=== PATIENT | male | born 1995 | race Caucasian/White ===

== ENCOUNTER 2017-10-18 11:44 | Emergency (ER) | payer OTHER, SELFPAY ==
[2017-10-18 11:49] VITALS: BP 146/70; PULSE 52; RESP 14; TEMP 36.9; O2SAT 100; BMI 25.1
--- NOTE | 2017-10-18 13:14 | ED_ITS ---
HPI - Extremity Injury (Lower) <Mary Dixon PA-C - Last Filed: 10/18/17 21:22> General Chief Complaint: Extremity Injury, Lower Stated Complaint: TWISTED RT KNEE Time Seen by Provider: 10/18/17 13:13 Source: patient Mode of arrival: ambulatory Limitations: no limitations History of Present Illness HPI Narrative: This healthy 21-year-old male comes in today to evaluate the progress of right knee injury that occurred 8 days ago while wake boarding. He states that he twisted and had some swelling initially which is still there a little bit but has improved. He states that initially he could not fully bend or straighten it but range of motion is improving. He had significant pain with going up and down stairs, now better but still hurts somewhat going downstairs. He states he some pain mainly at night now if he tries to put pressure or lie on that side of his leg. He states that he has been using ibuprofen as needed now and using a knee open brace which has helped. He does not have any sense of instability and feels like this has improved significantly but not sure how to further treat this or what activities he can do as he typically runs and lifts weights somewhat regularly. He denies any other injury or pain in other joints Related Data Home Medications Medication Instructions Recorded Confirmed No Known Home Medications 10/18/17 10/18/17 Allergies Allergy/AdvReac Type Severity Reaction Status Date / Time No Known Drug Allergies Allergy Verified 10/18/17 11:52 Review of Systems <Mary Dixon PA-C - Last Filed: 10/18/17 21:22> Review of Systems All systems reviewed & are unremarkable except as noted in HPI and below Exam <Mary Dixon PA-C - Last Filed: 10/18/17 21:22> Narrative Exam Narrative: GENERAL APPEARANCE: Patient sitting comfortably, in no distress. MUSCULOSKELETAL: Right hip no tenderness to palpation, full passive ROM without tenderness. Right knee there is minimal left medial suprapatellar effusion and tenderness. No joint line tenderness. No tenderness elsewhere over the femur, patella, or tibia. He has full extension actively of the right knee and flexion to 90? without tenderness. I am able to passively flex to 110 ? without tenderness. There is no laxity with varus or valgus stress or drawer testing. No tenderness or effusion over the right ankle. Full range of motion EXTREMITIES: No calf tenderness, warm and pink Initial Vital Signs Initial Vital Signs: Vital Signs Temperature 98.4 F 10/18/17 11:49 Pulse Rate 52 L 10/18/17 11:49 Respiratory Rate 14 10/18/17 11:49 Blood Pressure 146/70 H 10/18/17 11:49 Pulse Oximetry 100 10/18/17 11:49 <Liban Redman MD - Last Filed: 10/19/17 08:55> Initial Vital Signs Initial Vital Signs: Vital Signs Temperature 98.4 F 10/18/17 11:49 Pulse Rate 52 L 10/18/17 11:49 Respiratory Rate 14 10/18/17 11:49 Blood Pressure 146/70 H 10/18/17 11:49 Pulse Oximetry 100 10/18/17 11:49 Course <Mary Dixon PA-C - Last Filed: 10/18/17 21:22> Vital Signs - 8 hr 10/18/17 13:46 Pulse Rate 46 L Respiratory Rate 14 Blood Pressure [Left Arm] 134/69 H Pulse Oximetry 100 <Liban Redman MD - Last Filed: 10/19/17 08:55> Vital Signs - 8 hr 10/18/17 13:46 Pulse Rate 46 L Respiratory Rate 14 Blood Pressure [Left Arm] 134/69 H Pulse Oximetry 100 Discharge Plan Departure Patient Disposition: Home, Self-Care Clinical Impression: Patellar tendonitis of right knee Discharge Date/Time: 10/18/17 13:48 Interventions: ED Discharge Assessment Last Done: 10/18/17 13:47 Instructions: DI for Patellar Tendinopathy Activity Restrictions/Additional Instructions: You seem to have strained the area on the inside of your knee between the knee cap and thigh muscles. Since you are over the acute phase of this injury, you can try adding heat on your knee several times daily (i.e. with heating pad). Use ice also if you find it helpful. Take Ibuprofen 400mg every 8 hours with food for at least the next week. You can increase to 800mg as needed. Wear your knee brace. Regular walking on even surfaces is fine. Please try to avoid stairs and uneven surfaces. Avoid your weight lifting, squatting, running until your better. This could take 3-6 weeks longer. If you are not continuing to improve over the next couple of weeks, please see your PCP as you might need further testing or therapy as we talked about. Return if you have any acutely worsening symptoms Prescriptions: No Action No Known Home Medications RF: 0 [facility]errals: [facility] [Provider Group] <Liban Redman MD - Last Filed: 10/19/17 08:55> Sign Out Provider Sign Out Attestation: The PA/CHILLER TECHNICIAN functioned independently for the care of this pt, I was available, but not asked to participate in care. I am unable to determine appropriateness of management without personally examining the pt.
[2017-10-18 13:46] VITALS: BP 134/69; PULSE 46; RESP 14; O2SAT 100
== END 2017-10-18 13:48 | disposition home or self-care (01) ==
PROVIDERS: Emergency Provider Internal Medicine
DX: M76.51 Patellar tendinitis, right knee (principal)
CPT/HCPCS: 99282

== ENCOUNTER 2019-02-06 15:26 | Emergency (ER) | payer OTHER, SELFPAY ==
[2019-02-06 15:30] VITALS: BP 155/77; PULSE 58; RESP 14; TEMP 36.9; O2SAT 98; BMI 26.5
--- NOTE | 2019-02-06 16:06 | DI.RAD.S_ITS ---
PROCEDURE: XR CHEST 2V INDICATIONS: cough TECHNIQUE: 2 views of the chest were acquired. COMPARISON: None. FINDINGS: Surgical changes and devices: None. Lungs and pleura: Lungs are clear. No pleural effusions or pneumothorax. Mediastinum: Mediastinal contours are normal. Heart size is normal. Bones and chest wall: No suspicious bony abnormalities. Soft tissues appear unremarkable. IMPRESSION: Negative for infiltrate. Dictated by: Hill Claire M.D. on 02/06/2019 at 15:36 Approved by: Hill Claire M.D. on 02/06/2019 at 15:37
--- NOTE | 2019-02-06 16:20 | ED.URI ---
HPI - URI/Sore Throat General Chief Complaint: Upper Respiratory Symptoms Stated Complaint: bad cough 5-6wks,getting worse Time Seen by Provider: 02/06/19 15:29 Source: patient Mode of arrival: Ambulatory Limitations: no limitations History of Present Illness HPI Narrative: Patient presents the emergency department complaining of ongoing cough for the last 5-6 weeks. The patient states that within the 1st couple of weeks noticing the cough, his exercise tolerance had decreased and that he has lost about 5 since illness started, secondary to not being able to workout as usual. Patient denies any nausea or vomiting. No fevers. He has had minimal production of yellow sputum. The patient has been living over in [place], where he attends [facility]. Patient states he was seen in urgent care center, where he was started on amoxicillin. He states this almost completely cleared up the cough, but that it recurred when the amoxicillin was done. Patient has also been on Claritin-D, albuterol inhaler, prednisone and Robitussin, without improvement. After the amoxicillin, he was put on a Zithromax Z-Prabhakar which did not seem to help his symptoms. patient states he still has decreased exercise tolerance. He denies any calf pain or swelling. No swelling in his ankles or feet. No history of any exotic travel. Patient states he is otherwise very healthy. He does not do any kind of smoking and he does not vape. Patient denies any night sweats. No weight loss other than the 5 lb he attributes to not working out. 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 Nobody else around him has been sick. No history of GERD and no GERD type symptoms. Related Data Previous Rx's Medication Instructions Recorded benzonatate [Tessalon Perles] 100 mg PO TID PRN #10 cap 02/06/19 Allergies Allergy/AdvReac Type Severity Reaction Status Date / Time No Known Drug Allergies Allergy Verified 02/06/19 15:39 Review of Systems Constitutional Constitutional: Denies chills, Denies fatigue, Denies fever(s), Denies frequent falls, Denies lethargy and Denies weakness Eyes Eyes: Denies change in vision, Denies eye discharge, Denies irritation and Denies loss of vision ENT Ears, Nose, Mouth, and Throat: Denies change in voice, Denies dizziness, Denies neck pain, Denies sore throat and Denies throat swelling Cardiovascular Cardiovascular: Denies chest pain, Denies irregular heart rhythm, Denies lightheadedness, Denies palpitations, Denies dyspnea, Denies dyspnea on exertion and Denies orthopnea Respiratory Respiratory: Reports cough, Denies dyspnea, Denies dyspnea on exertion and Denies wheezing Gastrointestinal Gastrointestinal: Denies abdominal pain, Denies change in bowel habits, Denies diarrhea, Denies nausea and Denies vomiting Genitourinary Genitourinary: Denies hematuria, Denies flank pain, Denies urinary incontinence and Denies urinary urgency Musculoskeletal Musculoskeletal: Denies back pain, Denies muscle weakness, Denies neck pain, Denies numbness and Denies tingling Integumentary/Breasts Skin/Breast: Denies pruritus, Denies erythema, Denies rash and Denies wounds Neurologic Neurologic: Denies behavioral changes, Denies confusion, Denies dizziness, Denies frequent falls, Denies loss of vision, Denies numbness, Denies tingling and Denies weakness Psychiatric Psychiatric: Denies anxiety, Denies behavioral changes, Denies confusion, Denies depression, Denies homicidal ideation and Denies suicidal ideation Endocrine Endocrine: Denies fatigue, Denies flushing and Denies palpitations Hematologic/Lymphatic Hematologic/Lymphatic: Denies easy bruising Allergic/Immunologic Allergic/Immunologic: Denies urticaria, Denies throat swelling and Denies wheezing Patient History Medical History Healthy adult male (Chronic) Social History Smoking Status: Never smoker alcohol intake frequency: a few times a week Substance Use Type: does not use Exam Initial Vital Signs Initial Vital Signs: Vital Signs Temperature 98.5 F 02/06/19 15:30 Pulse Rate 58 L 02/06/19 15:30 Respiratory Rate 14 02/06/19 15:30 Blood Pressure 155/77 H 02/06/19 15:30 Pulse Oximetry 98 02/06/19 15:30 Const General: cooperative and well developed Nutritional Appearance: well nourished Orientation: alert, awake, oriented x3 and not confused HENMT Head: normocephalic and atraumatic Ears: external ears normal Nose: external nose normal and No nasal discharge Face and sinus: face symmetric and No dry mucous membranes Mouth: oral mucosae normal and moist mucous membranes Teeth and gingiva: dentition normal Eyes General: appearance normal, both eyes and all related structures Eyelids: eyelids normal Conjunctivae: conjunctivae normal Sclera: sclerae normal Pupils: PERRL EOM: EOM intact bilaterally Neck Neck: normal visual inspection, trachea midline, No lymphadenopathy, No midline deformity and No JVD Lymphatic: No lymphedema Chest Chest: normal inspection of the chest Resp Effort & Inspection: normal respiratory effort, able to speak in complete sentences, no respiratory distress and no use of accessory muscles Auscultation: clear to auscultation bilaterally, no rales, no rhonchi and no wheezes Cardio Rate: regular rate Rhythm: regular rhythm Heart Sounds: no click, no gallops, no murmurs and no rubs Pulses: normal peripheral pulses Back/Spine/Pelvis Back: No CVA tenderness Cervical Spine: cervical ROM normal and No pain with cervical ROM Thoracic/Lumbar Spine: thoracic and lumbar spine normal to inspection Skin General: no rashes or lesions noted, No jaundice and No petechiae Neuro General: alert, oriented x3, gait normal and no focal motor deficits Speech: speech normal Extrem General: full ROM, no clubbing, cyanosis or edema, no pedal edema and no calf tenderness Psych Appearance: well kempt Mental Status: mental status grossly normal Attitude: cooperative Thought Content: normal and suicidality Judgment: judgment good Course Course Course Narrative: Patient was worked up with chest x-ray in the emergency department. He was well appearing, and multiple avenues of treatment for his cough had proved unfruitful. His x-ray was negative here in the emergency department. I discussed with him that it is possible that he has low-level allergies or GERD, or that he is still experiencing the after effects of a viral illness. However, I have also discussed with the patient that may be helpful to follow up with primer charger when he is back in town on , and I have advised him to make an appointment now for followup than. The patient is agreeable, and states that he will be going back to [facility] for 2 weeks after than giving and then returning home again and can make a plan for follow-up if needed. I have prescribed him Tessalon Perles to help with the cough. We have discussed the usual indications for return. Orders Ordered: ED Orders 02/06/19 16:06 XR chest 2V Stat Vital Signs Vital signs: Vital Signs - 8 hr 02/06/19 15:30 Temperature 98.5 F Pulse Rate 58 L Respiratory Rate 14 Blood Pressure 155/77 H Pulse Oximetry 98 MDM - URI/Sore Throat Medical Records Attestation: I reviewed the patient's medical records. Imaging Data Chest x-ray: Radiologist's impression: PROCEDURE: XR CHEST 2V INDICATIONS: cough TECHNIQUE: 2 views of the chest were acquired. COMPARISON: None. FINDINGS: Surgical changes and devices: None. Lungs and pleura: Lungs are clear. No pleural effusions or pneumothorax. Mediastinum: Mediastinal contours are normal. Heart size is normal. Bones and chest wall: No suspicious bony abnormalities. Soft tissues appear unremarkable. IMPRESSION: Negative for infiltrate. Dictated by: Hill Claire M.D. on 02/06/2019 at 15:36 Approved by: Hill Claire M.D. on 02/06/2019 at 15:37 Discharge Plan Departure Patient Disposition: Home Clinical Impression: Cough Discharge Date/Time: 02/06/19 17:25 Instructions: DI for Cough -- Adult Activity Restrictions/Additional Instructions: Your x-ray looks great. There is no evidence of pneumonia or any other infection. There is also no evidence of a tumor. Your heart silhouette is of normal size and there is no evidence of heart failure. It is not clear what is causing your ongoing cough; sometimes, a prolonged cough can simply be the fall out of a longer-lasting viral infection, though most do not last nearly this long. Given that you have been through 2 courses of antibiotics and have no fevers and minimal sputum production, it is unlikely that you have a lingering bacterial infection. Please schedule an appointment to follow-up in pulmonology on your Aris break if you're still coughing. You may take the Tessalon Perles prescribed to try to get relief from your cough. Prescriptions: New benzonatate [Tessalon Perles] 100 mg capsule 100 mg PO TID PRN (Reason: cough) Qty: 10 RF: 0 Referrals: [facility] [Provider Group]
[2019-02-06 17:16] VITALS: PULSE 48; RESP 16; O2SAT 98
[2019-02-06 17:24] VITALS: BP 132/62; PULSE 49; RESP 14; O2SAT 98
== END 2019-02-06 17:25 | disposition home or self-care (01) ==
PROVIDERS: Emergency Provider Emergency Medicine
DX: R05 Cough (principal)
CPT/HCPCS: 71046; 99282; 99283

== ENCOUNTER 2019-03-05 10:15 | Emergency (ER) | payer OTHER, SELFPAY ==
[2019-03-05 10:15] VITALS: BP 144/67; PULSE 51; RESP 18; TEMP 36.8; O2SAT 100; BMI 25.1
--- NOTE | 2019-03-05 11:25 | ED_ITS ---
HPI - Eye Problem <GINNY FloresP - Last Filed: 03/05/19 14:27> General Chief complaint: Eye Problems Stated complaint: poss conjunctivitis/pink eye Time Seen by Provider: 03/05/19 11:00 Source: patient Mode of arrival: Ambulatory Limitations: no limitations History of Present Illness HPI Narrative: This is a 23-year-old male, nonsmoker, who presents to ED with chief complain of goopy eye discharge since in the middle of night during sleep. Patient reports this morning he was unable to open his eyes due to thick yellow eye discharge. Patient denies vision changes or decreased vision, eye pain, or watery eye. Patient denies fever, chills, nausea or vomiting. Patient reports currently takes allergy medications and currently has mild cold symptoms. Patient was treated for conjunctivitis a few months ago when he was living in a dorm. Related Data Home Medications Medication Instructions Recorded Confirmed cetirizine [Zyrtec] 10 mg PO DAILY 03/05/19 03/05/19 Previous Rx's Medication Instructions Recorded moxifloxacin 1 drop EYE-BOTH TID 7 Days #3 ml 03/05/19 Allergies Allergy/AdvReac Type Severity Reaction Status Date / Time No Known Drug Allergies Allergy Verified 02/06/19 15:39 Review of Systems <REGLA Flores - Last Filed: 03/05/19 14:27> Review of Systems Narrative: General: Denies fever, chills, fatigue, malaise, sweats. HEENT: See HPI Respiratory: Reports mild cough and nasal congestion. Denies dyspnea, wheezing, hemoptysis, sputum. Cardiovascular: Denies chest pain, palpitations, orthopnea, edema. Gastrointestinal: Denies nausea, vomiting, abdominal pain, diarrhea, constipation, melena. : Denies dysuria, frequency, incontinence, hematuria, urinary retention. Musculoskeletal: Denies weakness, joint pain or bony pain. Skin: Denies rash, skin lesions, or other. Neurologic: Denies weakness, headache, numbness, change in speech, confusion, seizures, incoordination. Psychiatric: No concerning psychosocial issues. 12-point review of systems is negative except for those stated above. [facility] Last Filed: 03/05/19 14:27> Medical History Healthy adult male (Chronic) Social History Smoking Status: Never smoker Smoking Status: Never smoker alcohol intake frequency: a few times a week Substance Use Type: does not use Exam <REGLA Flores - Last Filed: 03/05/19 14:27> Narrative Exam Narrative: General appearance: well developed, well nourished, in no acute distress. Head: normocephalic, atraumatic, no scalp lesions, non-tender. ENT: Hearing grossly intact. Nose without bleeding, purulent discharge, septal hematoma or deviation. Turbinate without erythema or swelling. Facial sinuses nontender to palpate. Mucous membrane moist, no mucosal lesion. Throat without erythema, tonsillar hypertrophy or exudate. Uvula in midline, airway patent. Bilateral eyes mildly injected, L>R, purulent discharge is around the eyelids and lashes. Visual acuity 20/20 in OU, OS, and OD. +red light reflex, EOMI. No uptake in Fluorescein exam. No redness and warmth around the bilateral eyes. Neck/Thyroid: neck supple, full range of motion, no visible masses or meningeal signs. No JVD, non-tender without lymphadenopathy. Skin: no suspicious rashes, lesions over visible areas. Warm and dry and appropriate color for ethnicity. Heart: no clubbing, no cyanosis, no edema. S1 and S2 normal. RRR w/o murmurs, clicks, or bruits. Lungs: Breathing even and unlabored. No stridor. No accessory muscles used. Able to speak in full sentences. Chest: normal shape and expansion. Abdomen: non-obese, non-distended. Neurologic: alert and oriented. Cognitive exam, RAILROAD SIGNAL TECHNICIAN and PNS grossly intact on informal exam. Psych: good eye contact, normal affect. Initial Vital Signs Initial Vital Signs: Vital Signs Temperature 98.3 F 03/05/19 10:15 Pulse Rate 51 L 03/05/19 10:15 Respiratory Rate 18 03/05/19 10:15 Blood Pressure 144/67 H 03/05/19 10:15 Pulse Oximetry 100 03/05/19 10:15 <Jessica Adame DO - Last Filed: 03/05/19 14:58> Initial Vital Signs Initial Vital Signs: Vital Signs Temperature 98.3 F 03/05/19 10:15 Pulse Rate 51 L 03/05/19 10:15 Respiratory Rate 18 03/05/19 10:15 Blood Pressure 144/67 H 03/05/19 10:15 Pulse Oximetry 100 03/05/19 10:15 Scores [facility] - Last Filed: 03/05/19 14:27> GCS Melvern coma scale eye opening: Spontaneous Ramin coma scale verbal response: Orientated Melvern coma scale motor response: Obey commands Ramin coma scale total score: 15 Course <[facility] - Last Filed: 03/05/19 14:27> Orders Ordered: Discontinued Medications Fluorescein Sodium (Ful-Ayde) 1 mg EYE-BOTH NOW ONE Stop: 03/05/19 11:02 Last Admin: 03/05/19 11:47 Dose: 1 mg Documented by: [facility] Proparacaine HCl (Parcaine 0.5% Ophth Tisha) 2 drops EYE-BOTH NOW ONE Stop: 03/05/19 11:02 Last Admin: 03/05/19 11:47 Dose: 2 drop Documented by: CAMI Vital Signs Vital signs: Vital Signs - 8 hr 03/05/19 10:15 03/05/19 11:48 Temperature 98.3 F Pulse Rate 51 L 72 Respiratory Rate 18 16 Blood Pressure 144/67 H Blood Pressure [Left Arm] 136/77 Pulse Oximetry 100 100 <Jessica Adame DO - Last Filed: 03/05/19 14:58> Orders Ordered: Discontinued Medications Fluorescein Sodium (Ful-Ayde) 1 mg EYE-BOTH NOW ONE Stop: 03/05/19 11:02 Last Admin: 03/05/19 11:47 Dose: 1 mg Documented by: [facility]I Proparacaine HCl (Parcaine 0.5% Ophth Tisha) 2 drops EYE-BOTH NOW ONE Stop: 03/05/19 11:02 Last Admin: 03/05/19 11:47 Dose: 2 drop Documented by: CAMI Vital Signs Vital signs: Vital Signs - 8 hr 03/05/19 10:15 03/05/19 11:48 Temperature 98.3 F Pulse Rate 51 L 72 Respiratory Rate 18 16 Blood Pressure 144/67 H Blood Pressure [Left Arm] 136/77 Pulse Oximetry 100 100 [facility] - Eye Problem <REGLA Flores - Last Filed: 03/05/19 14:27> Differential Diagnosis Differential diagnosis: Likely corneal abrasion and conjunctivitis Medical Records Attestation: I reviewed the patient's medical records. [facility] Narrative Medical decision making narrative: This is a 23-year-old male who presents to ED with purulent eye discharge and mild itchiness in bilateral eyes since midnight last night. Patient denies eye discomfort or decreased in vision. Patient visual acuity is 20/20 bilaterally. Fluorescein eye exam without up takes. Patient was treated with conjunctivitis several months ago when he was living in a dorm. Physical exam is consistent with bacterial conjunctivitis and discharged to home with antibiotic eyedrops. Return precautions were discussed with the patient and patient verbalized understanding and agrees with the treatment plan. Strict handwashing and to avoid touching eyes discussed with the patient. Discharge Plan Departure Patient Disposition: Home Clinical Impression: Conjunctivitis Qualifiers: Conjunctivitis type: unspecified Laterality: bilateral Qualified Code(s): H10.9 - Unspecified conjunctivitis Discharge Date/Time: 03/05/19 12:00 Instructions: DI for Conjunctivitis Activity Restrictions/Additional Instructions: You have been diagnosed with [conjunctivitis in both eyes]. What to do: *Take your medications as directed. Moxifloxacin eyedrops has been transmitted to [facility]. Please use 1 drop every 8 hours while awake for 7 days. *Follow up with your primary care provider in 2-3 days, call for an appointment. Let them know you were seen in the ED and that we asked you to be seen in follow up. *Return to ED if you have any new, worsening, or concerning symptoms, such as [redness and swelling spreading to eye lids and face, fever, pain, decreased vision or any acute concerns]. Prescriptions: New moxifloxacin 0.5 % drops 1 drop EYE-BOTH TID 7 Days Qty: 3 RF: 0 No Action Zyrtec 10 mg Capsule 10 mg PO DAILY RF: 0 Referrals: Clare Roberts DO [Primary Care Provider] -
[2019-03-05] MEDS: PROPARACAINE 0.5% OPHTH SOL 2 DROPS EYE-BOTH (11:47)
[2019-03-05] MEDS: FLUORESCEIN 1 MG STRIP EYE-BOTH (11:47)
[2019-03-05 11:48] VITALS: BP 136/77; PULSE 72; RESP 16; O2SAT 100
== END 2019-03-05 12:00 | disposition home or self-care (01) ==
PROVIDERS: Emergency Provider Nurse Practitioner Family; PCP Family Medicine
DX: H10.9 Unspecified conjunctivitis (principal)
CPT/HCPCS: 99282

== ENCOUNTER 2019-08-15 16:22 | Emergency (ER) | payer OTHER, SELFPAY ==
[2019-08-15 16:26] VITALS: BP 177/86; PULSE 99; RESP 18; TEMP 37; O2SAT 99; BMI 25.8
--- NOTE | 2019-08-15 16:42 | ED_ITS ---
HPI - Skin/Abscess/Foreign Bdy <Mary George PA-C - Last Filed: 08/16/19 00:28> General Chief complaint: Skin/Abscess/Foreign Body Stated complaint: Chest Pain/Headache/Swollen,Cold Itchy Toes Time Seen by Provider: 08/15/19 16:40 Source: patient Mode of arrival: Ambulatory History of Present Illness HPI narrative: Is a previously healthy 23-year-old who presents with multiple complaints, most notably for him today is intermittent discomfort in his feet including some tingling and cold toes and occasionally hot feeling toes he notices particularly after he dogs that his toes are slightly discolored and t hat it seems like the blood supply is not as good and they feel cold. He also notices that often at night when he is in bed his toes feel warm and they look more pink. He also says he sometimes feels like his toes are slightly swollen just after a run but this resolved spontaneously fairly quickly. He did try changing his shoes recently but that did not solve the problem. He was in college up until a couple of months ago and he has mostly just been at home recently, he states he has actually decreased his jogging in the past month because of the discomfort he has had in his feet. He reports he does do a lot of sit-ups and pushups, but has not really increased this since he left school. He also complains of occasional headaches 1 about a month ago that lasted for 2 days on and off that was relieved with Tylenol and 1 today that is mild 2/10. He also complains of pain in his sternum mild and that is worse with movement. He has had this occasionally in the past week, he noticed it last night when he was sleeping and moving around he felt some intermittent sharp pains specifically when he was moving his chest around. He states that his mom is a diabetic but he checked his blood sugar about 3 weeks ago and it was ?fine?. He does not take any medications and he has never had this problem with his feet before. He denies pain in his feet, nausea vomiting fevers, diarrhea, dysuria, chills, or any other symptoms. MD complaint: discoloration and other (tingling, swelling) Onset (ago): month(s) (1) Tetanus up to date: unsure Location: L foot and R foot Severity: mild Severity scale (1-10): 1 Quality: other (tingly) Pain Consistency: now resolved (comes and goes) Relieving factors: none Exacerbating factors: movement (jogging) Treatments prior to arrival: none Related Data Home Medications Medication Instructions Recorded Confirmed cetirizine [Zyrtec] 10 mg PO DAILY 03/05/19 03/05/19 Allergies Allergy/AdvReac Type Severity Reaction Status Date / Time No Known Drug Allergies Allergy Verified 02/06/19 15:39 Review of Systems <Mary George PA-C - Last Filed: 08/16/19 00:28> Review of Systems Narrative: GENERAL: Denies chills, fatigue, malaise, fever, sweats. HEENT: Denies sinus pain, ear pain, sore throat, difficulty swallowing, dizziness. RESPIRATORY: Denies dyspnea, cough, wheezing, hemoptysis, sputum. CARDIOVASCULAR: Endorses occasional sharp midsternal chest pain only with movement in the last 2 weeks, denies palpitations, orthopnea, edema, GASTROINTESTINAL: Denies nausea, vomiting, abdominal pain, diarrhea, constipation, melena. : Denies dysuria, frequency, incontinence, hematuria, urinary retention. MUSCULOSKELETAL: denies weakness, joint pain, or bony pain. He endorses a bunion on his right heel that has been present for years. SKIN: Positive for intermittent swelling, bluish discoloration, reddish discoloration, cold temperature, hot temperature and numbness and tingling in his toes and feet most notably on the right for the past 4 weeks. Denies rash, skin lesions, or other NEUROLOGIC: Endorses 2 mild headaches in the last 4 weeks relieved with Tylenol, Denies weakness, numbness, change in speech, confusion, seizures, incoordination. PSYCHIATRIC: No concerning psychosocial issues. 12 point review of systems is negative except for those stated above Patient History <Mary George PA-C - Last Filed: 08/16/19 00:28> Medical History Healthy adult male (Chronic) Social History Smoking Status: Never smoker Smoking Status: Never smoker alcohol intake frequency: a few times a week Substance Use Type: does not use Exam <Mary George PA-C - Last Filed: 08/16/19 00:28> Narrative Exam Narrative: GENERAL: 23 year old patient appears stated age. Well-nourished, well-developed patient, in mild distress. HEAD: Atraumatic. Normocephalic. EYES: Pupils equal round and reactive. Extraocular motions intact. No scleral icterus. No injection or drainage. ENT: Nose without bleeding, purulent drainage. Throat without erythema, tonsillar hypertrophy or exudate. Airway patent. NECK: Trachea midline. Non tender CARDIOVASCULAR/CHEST: Regular rate and rhythm without murmurs, gallops, or rubs. Dorsalis pedis and posterior tibialis are strong and equal bilaterally 2+, radial pulses 2+. Palpation of the manubrium reproduces his occasional sharp chest pain that he experiences on movement, RESPIRATORY: Clear to auscultation. Breath sounds equal bilaterally. No wheezes, rales, or rhonchi. GASTROINTESTINAL: Abdomen soft, non-tender, nondistended. EXTREMITIES: No edema or joint tenderness. Toes on bilateral feet are cold to sensation, with slow capillary refill of 3 seconds on all digits bilateral feet. There is no apparent swelling, no dark discoloration, no evidence of fungus, lesions or any infectious process. Sensation including sharp / dull discrimi nation is intact in the distal lower extremities equally and bilaterally. There is a bunion on his right lateral heel. BACK: Nontender without deformity or crepitance. No flank tenderness. NEURO: AOx3. SKIN: No rash or erythema of visible areas Initial Vital Signs Initial Vital Signs: Vital Signs Temperature 98.6 F 08/15/19 16:26 Pulse Rate 99 H 08/15/19 16:26 Respiratory Rate 18 08/15/19 16:26 Blood Pressure 177/86 H 08/15/19 16:26 Pulse Oximetry 99 08/15/19 16:26 <Ana M Mckeon MD - Last Filed: 08/16/19 03:25> Initial Vital Signs Initial Vital Signs: Vital Signs Temperature 98.6 F 08/15/19 16:26 Pulse Rate 99 H 08/15/19 16:26 Respiratory Rate 18 08/15/19 16:26 Blood Pressure 177/86 H 08/15/19 16:26 Pulse Oximetry 99 08/15/19 16:26 Course <Mary George PA-C - Last Filed: 08/16/19 00:28> Orders Ordered: ED Orders 08/15/19 16:32 EKG-12 Lead Stat 08/15/19 17:02 Troponin & CK Cardiac Panel Stat Vital Signs Vital signs: Vital Signs - 8 hr 08/15/19 16:26 08/15/19 19:13 Temperature 98.6 F Pulse Rate 99 H 53 L Respiratory Rate 18 14 Blood Pressure 177/86 H Blood Pressure [Left Arm] 138/74 Pulse Oximetry 99 98 <Ana M Mckeon MD - Last Filed: 08/16/19 03:25> Orders Ordered: ED Orders 08/15/19 16:32 EKG-12 Lead Stat 08/15/19 17:02 Troponin & CK Cardiac Panel Stat Vital Signs Vital signs: Vital Signs - 8 hr 08/15/19 16:26 08/15/19 19:13 Temperature 98.6 F Pulse Rate 99 H 53 L Respiratory Rate 18 14 Blood Pressure 177/86 H Blood Pressure [Left Arm] 138/74 Pulse Oximetry 99 98 MDM - Skin/Abscess/Foreign Bdy <Mary George PA-C - Last Filed: 08/16/19 00:28> Differential Diagnosis Differential diagnosis: Likely other (Likely Raynaud's phenomena) Medical Records Attestation: I reviewed the patient's medical records. Lab Data Attestation: I reviewed the patient's lab results. Labs: Lab Results 08/15/19 Range/Units 17:02 Total Creatine Kinase 195 H (55-170) U/L CK-MB (CK-2) 1.11 (<2.37) ng/mL CK-MB (CK-2) Rel Index 0.6 L (1.5-5.0) % Troponin I < 0.012 (0.01-0.034) ng/mL Point of Care Testing Glucose POC 73 MDM Narrative Medical decision making narrative: This is a previously healthy a 23-year-old who presents to the emergency department complaining of cold toes, discoloration of his toes particularly after going jogging, occasional swelling and occasional numbness of his feet intermittently over the past 4-5 weeks. He also complained of 2 mild intermittent headaches and recent occasional chest pain in his sternum that is sharp and worse specifically with movements such as turning over in bed. Based on exam he does have slightly reduced circulation in his feet, however though slightly delayed capillary refill/exam does not suggest circulatory compromise at this time. He brought color photos that also showed his toes being slightly red, and his toes being slightly more pale at different times in the last 24 hours. I am highly suspicious that he is suffering from Raynaud's, although it is possible that there is another cause for his symptoms such as a rheumatologic problem. He does not seem to have diminished/altered sensation in his feet, he described episodes of numbness in his entire right foot particularly after running as well as some numbness that occurred during running recently but resolved with stopping that may represent a tarsal tunnel syndrome, his occasional sharp chest pain is consistent with musculoskeletal pain, and is likely due to his home exercising with pushups and sit-ups. All of these were discussed with the patient. Cardiac labs were unremarkable today. He was advised regarding strict return precautions, primary care follow-up, establishing a primary care in the area, and was advised to keep his feet warm as much as possible and to stay off of them for the next 10 days at least in terms of jogging. All questions were answered. <Ana M Mckeon MD - Last Filed: 08/16/19 03:25> Lab Data Labs: Lab Results 08/15/19 Range/Units 17:02 Total Creatine Kinase 195 H (55-170) U/L CK-MB (CK-2) 1.11 (<2.37) ng/mL CK-MB (CK-2) Rel Index 0.6 L (1.5-5.0) % Troponin I < 0.012 (0.01-0.034) ng/mL Point of Care Testing Glucose POC 73 Discharge Plan Departure Patient Disposition: Home Clinical Impression: Tingling of both feet Raynaud phenomenon Qualifiers: Raynaud?s-associated gangrene presence: without gangrene Qualified Code(s): I73.00 - Raynaud's syndrome without gangrene Discharge Date/Time: 08/15/19 19:29 Instructions: Raynaud's Phenomenon (Alternative Therapy), Raynaud Disease and Phenomenon Activity Restrictions/Additional Instructions: Thank you for letting us to be part of her care in the emergency department today. There is no evidence of an emergent or life threatening illness at this time, but follow up with your doctor in 1-2 days is recommended nonetheless to continue to rule out serious underlying causes of your symptoms. Please call the office for an appointment. Please return to the Emergency Department for any worsening or persistent symptoms. Please take medications as directed. There are some medications that can be tried if you do indeed have Raynaud's, however at this point based on your exam I do not suspect that these are necessary, but I strongly recommend that you establish care with a primary care and see them in the next 3-5 days I have included the [facility] information if you want to talk to them about setting up a PCP, however since he live in [place] and have mentioned a preference to see primary care there your welcome to explore options there instead. In your case from what I can see your circulation appears to be acceptable while it is somewhat reduced, however it is very important that you pay attention to how your circulation is and how your feet are feeling, and if you have concerns that the discoloration is lasting longer or you are having pain or any other symptoms of concern please do not hesitate to return to the emergency department or seek medical care. Some important things to consider with Raynaud's are avoiding exposure to cold, and trying to maintain warmth of your digits (toes). Prescriptions: No Action Zyrtec 10 mg Capsule 10 mg PO DAILY RF: 0 Referrals: [facility] [Outside] <Ana M Mckeon MD - Last Filed: 08/16/19 03:25> [facility] I was immediately available in the department for consultation throughout this patient's visit. I agree with documentation as above. Ana M Mckeon MD
[2019-08-15 17:22] LABS: Creatine Kinase 195 U/L (55-170)
[2019-08-15 17:35] LABS: Troponin I < 0.012 ng/mL (0.01-0.034)
[2019-08-15 17:37] LABS: CKMB % Relative Index 0.6 % (1.5-5.0); Creatine Kinase MB 1.11 ng/mL (<2.37)
[2019-08-15 19:13] VITALS: BP 138/74; PULSE 53; RESP 14; O2SAT 98
== END 2019-08-15 19:29 | disposition home or self-care (01) ==
PROVIDERS: Emergency Provider Student in an Organized Health Care Education/Training Program
DX: I73.00 Raynaud's syndrome without gangrene (principal); R20.2 Paresthesia of skin; R07.9 Chest pain, unspecified
CPT/HCPCS: 36415; 82550; 82553; 82962; 84484; 93005; 93010; 99283; 99284

== ENCOUNTER 2019-10-23 21:19 | Emergency (ER) | payer OTHER, SELFPAY ==
[2019-10-23] VITALS (7 sets, daily range): BP systolic 149–192; BP diastolic 68–105; PULSE 49–60; RESP 10–20; TEMP 37.1; O2SAT 95–99; BMI 25.1
--- NOTE | 2019-10-23 21:36 | ED_ITS ---
HPI - Chest Pain General Chief Complaint: Chest Pain Stated Complaint: hands and feet cold,SOB, CP, calf pain Time Seen by Provider: 10/23/19 21:20 Source: patient Mode of arrival: Ambulatory Limitations: no limitations History of Present Illness HPI narrative: 23-year-old male nonsmoker with noncontributory medical history presents with a chief complaint of various episodes of chest pain, shortness of breath, episodes of hand and foot redness with associated pain. He cannot associated any patterns to the above-stated complaints. The nursing staff is asking for a fix I must divert my attention from charting on this done Nick and help out my staff Related Data Home Medications Medication Instructions Recorded Confirmed cetirizine [Zyrtec] 10 mg PO DAILY 03/05/19 03/05/19 Allergies Allergy/AdvReac Type Severity Reaction Status Date / Time No Known Drug Allergies Allergy Verified 02/06/19 15:39 Review of Systems Constitutional Constitutional: Denies chills, Denies fatigue, Denies fever(s), Denies frequent falls, Denies lethargy and Denies weakness Eyes Eyes: Denies change in vision, Denies eye discharge, Denies irritation and Denies loss of vision ENT Ears, Nose, Mouth, and Throat: Denies change in voice, Denies dizziness, Denies neck pain, Denies sore throat and Denies throat swelling Cardiovascular Cardiovascular: Reports acrocyanosis, Reports chest pain, Denies irregular heart rhythm, Denies lightheadedness, Denies palpitations, Reports dyspnea, Denies dyspnea on exertion and Denies orthopnea Respiratory Respiratory: Denies cough, Reports dyspnea, Denies dyspnea on exertion and Denies wheezing Gastrointestinal Gastrointestinal: Denies abdominal pain, Denies change in bowel habits, Denies diarrhea, Denies nausea and Denies vomiting Musculoskeletal Musculoskeletal: Denies neck pain and Denies numbness Integumentary/Breasts Skin/Breast: Denies pruritus, Denies erythema, Denies rash and Denies wounds Neurologic Neurologic: Denies behavioral changes, Denies confusion, Denies dizziness, Denies frequent falls, Denies loss of vision, Denies numbness and Denies weakness Psychiatric Psychiatric: Denies anxiety, Denies behavioral changes, Denies confusion, Denies depression, Denies homicidal ideation and Denies suicidal ideation Endocrine Endocrine: Denies fatigue, Denies flushing and Denies palpitations Hematologic/Lymphatic Hematologic/Lymphatic: Denies easy bruising Allergic/Immunologic Allergic/Immunologic: Denies urticaria, Denies throat swelling and Denies wheezing Patient History Medical History Healthy adult male (Chronic) Social History Smoking Status: Never smoker Smoking Status: Never smoker alcohol intake frequency: a few times a week Substance Use Type: does not use Exam Narrative Exam Narrative: GENERAL: [23] year old patient appears stated age. Well- nourished, well-developed patient, in mild distress. HEAD: Atraumatic. Normocephalic. EYES: Pupils equal round and reactive. Extraocular motions intact. No scleral icterus. No injection or drainage. ENT: Nose without bleeding, purulent drainage. Throat without erythema, tonsillar hypertrophy or exudate. Airway patent. NECK: Trachea midline. Non tender CARDIOVASCULAR: Regular rate and rhythm without murmurs, gallops, or rubs. RESPIRATORY: Clear to auscultation. Breath sounds equal bilaterally. No wheezes, rales, or rhonchi. GASTROINTESTINAL: Abdomen soft, non-tender, nondistended. EXTREMITIES: No edema or joint tenderness. BACK: Nontender without deformity or crepitance. No flank tenderness. NEURO: AOx3. SKIN: No rash or erythema of visible areas Initial Vital Signs Initial Vital Signs: Vital Signs Temperature 98.8 F 10/23/19 21:30 Pulse Rate 60 10/23/19 21:30 Respiratory Rate 14 10/23/19 21:30 Blood Pressure 192/105 H 10/23/19 21:30 Pulse Oximetry 99 10/23/19 21:30 Course Orders Ordered: ED Orders 10/23/19 21:58 Complete Blood Count AUTO DIFF Stat Comprehensive Metabolic Panel Stat D Dimer Stat NT-proBNP (BNP-Adult 18+) Stat Procalcitonin Stat Troponin & CK Cardiac Panel Stat Vital Signs Vital signs: Vital Signs - 8 hr 10/23/19 23:00 10/23/19 23:30 Pulse Rate 49 L 50 L Respiratory Rate 20 Blood Pressure 166/76 H 149/70 H Pulse Oximetry 98 95 MDM - Chest Pain Lab Data Result diagrams: 10/23/19 21:58 10/23/19 21:58 Labs: Lab Results 10/23/19 10/23/19 10/23/19 Range/Units 21:58 21:58 21:58 WBC 7.6 (4.5-11.0) X10^3/uL RBC 5.16 (4.5-5.9) X10^6/uL Hgb 15.4 (13.5-17.5) g/dL Hct 45.6 (41-53) % MCV 88.5 (80-100) fL MCH 29.8 (26-34) PG MCHC 33.7 (30-36) % RDW 12.3 (11.6-14.8) % Plt Count 257 (150-400) X10^3/uL Neut % (Auto) 39.6 L (50-75) % Lymph % (Auto) 43.5 H (25-40) % [place] % (Auto) 9.2 (3-14) % Eos % (Auto) 7.0 H (2-4) % Baso % (Auto) 0.7 (0-2) % Neut # (Auto) 3000 (7241-2151) /uL Lymph # (Auto) 3300 (4510-9873) /uL [place] # (Auto) 700 (0-900) /uL Eos # (Auto) 500 H (0-450) /uL Baso # (Auto) 100 (0-100) /uL D-Dimer < 200 (<230) ng/mL Sodium 137 (137-145) mmol/L Potassium 3.8 (3.4-5.1) mmol/L Chloride 102 (98-107) mmol/L Carbon Dioxide 26 (22-32) mmol/L BUN 17 (9-20) mg/dL Creatinine 1.15 (0.66-1.25) mg/dL Estimated GFR > 60.0 (>60) mL/min BUN/Creatinine Ratio 14.8 (6-22) Glucose 95 (70-100) mg/dL Calcium 9.7 (8.4-10.2) mg/dL Total Bilirubin 0.4 (0.2-1.3) mg/dL AST 39 (17-59) IU/L ALT 37 (<50) IU/L Alkaline Phosphatase 76 (38-126) U/L Total Creatine Kinase 101 (55-170) U/L CK-MB (CK-2) 0.38 (<2.37) ng/mL CK-MB (CK-2) Rel Index 0.4 L (1.5-5.0) % Troponin I < 0.012 (0.01-0.034) ng/mL NT-Pro-B Natriuret Pep (<125) pg/mL Total Protein 7.4 (6.3-8.2) g/dL Albumin 4.7 (3.5-5.0) g/dL Globulin 2.7 (1.7-4.1) g/dL Albumin/Globulin Ratio 1.7 (1.0-2.8) Procalcitonin (<0.5) ng/mL COVID-19 PCR (Negative) 10/23/19 10/23/19 10/23/19 Range/Units 21:58 21:58 22:13 WBC (4.5-11.0) X10^3/uL RBC (4.5-5.9) X10^6/uL Hgb (13.5-17.5) g/dL Hct (41-53) % MCV (80-100) fL MCH (26-34) PG MCHC (30-36) % RDW (11.6-14.8) % Plt Count (150-400) X10^3/uL Neut % (Auto) (50-75) % Lymph % (Auto) (25-40) % [place] % (Auto) (3-14) % Eos % (Auto) (2-4) % Baso % (Auto) (0-2) % Neut # (Auto) (3165-6158) /uL Lymph # (Auto) (0533-8479) /uL [place] # (Auto) (0-900) /uL Eos # (Auto) (0-450) /uL Baso # (Auto) (0-100) /uL D-Dimer (<230) ng/mL Sodium (137-145) mmol/L Potassium (3.4-5.1) mmol/L Chloride (98-107) mmol/L Carbon Dioxide (22-32) mmol/L BUN (9-20) mg/dL Creatinine (0.66-1.25) mg/dL Estimated GFR (>60) mL/min BUN/Creatinine Ratio (6-22) Glucose (70-100) mg/dL Calcium (8.4-10.2) mg/dL Total Bilirubin (0.2-1.3) mg/dL AST (17-59) IU/L ALT (<50) IU/L Alkaline Phosphatase (38-126) U/L Total Creatine Kinase (55-170) U/L CK-MB (CK-2) (<2.37) ng/mL CK-MB (CK-2) Rel Index (1.5-5.0) % Troponin I (0.01-0.034) ng/mL NT-Pro-B Natriuret Pep 27 (<125) pg/mL Total Protein (6.3-8.2) g/dL Albumin (3.5-5.0) g/dL Globulin (1.7-4.1) g/dL Albumin/Globulin Ratio (1.0-2.8) Procalcitonin < 0.05 (<0.5) ng/mL COVID-19 PCR Negative (Negative) Imaging Data Chest x-ray: Radiologist's Impression: [address] [address] XRay Report Signed Patient: Carloz Wright TMR#: [id number] : 1995Acct:[id number] Age/Sex: te of Service: 10/23/19 Loc: ED Accession Number: [id number] Procedure: XR chest 2V Ordering Provider: Ti Hartley D.O. PROCEDURE: XR CHEST 2V INDICATIONS: SOB TECHNIQUE: 2 views of the chest were acquired. COMPARISON: [facility], , XR CHEST 2V, 02/06/2019, 16:05. FINDINGS: Surgical changes and devices: None. Lungs and pleura: Lungs are clear. No pleural effusions or pneumothorax. Mediastinum: Mediastinal contours are normal. Heart size is normal. Bones and chest wall: No suspicious bony abnormalities. Soft tissues appear unremarkable. IMPRESSION: No acute cardiopulmonary process demonstrated radiographically. Dictated by: Stanford Muse M.D. on 10/23/2019 at 21:59 Approved by: Stanford Muse M.D. on 10/23/2019 at 22:00 Discharge Plan Departure Patient Disposition: Home Clinical Impression: Atypical chest pain, Breath shortness Discharge Date/Time: 10/24/19 00:06 Instructions: DI for Atypical Chest Pain Activity Restrictions/Additional Instructions: *You have been diagnosed with [atypical chest pain and shortness of breath, possible Raynaud's. Today's evaluation was very reassuring for emergent diagnos es such as heart attack, blood clot, electrolyte problem or COVID] *What to do: *Take medications as directed *Follow up with your primary care provider in 2-3 days, call for an appointment. Let them know you were seen in the Emergency Department and that we ask that you be seen in follow up *Return to ER if you should have any new, worsening or concerning symptoms, such as [ ] Prescriptions: No Action Zyrtec 10 mg Capsule 10 mg PO DAILY RF: 0
[2019-10-23 22:30] LABS: D Dimer < 200 ng/mL (<230)
[2019-10-23 22:32] LABS: Add Manual Diff / Slide Review NO; Basophils Absolute Auto 100 /uL (0-100); Basophils Percent Auto 0.7 % (0-2); Eosinophils Absolute Auto 500 /uL (0-450); Hematocrit 45.6 % (41-53); Hemoglobin 15.4 g/dL (13.5-17.5); Lymphocytes Absolute Auto 3300 /uL (1100-4500); Lymphocytes Percent Auto 43.5 % (25-40); Mean Corpuscular HGB Conc 33.7 % (30-36); Mean Corpuscular Hemoglobin 29.8 PG (26-34); Mean Corpuscular Volume 88.5 fL (80-100); Monocytes Absolute Auto 700 /uL (0-900); Monocytes Percent Auto 9.2 % (3-14); Neutrophils Absolute Auto 3000 /uL (1500-7000); Neutrophils Percent Auto 39.6 % (50-75); Platelet Count 257 X10^3/uL (150-400); Red Blood Cell Count 5.16 X10^6/uL (4.5-5.9); Red Cell Distribution Width 12.3 % (11.6-14.8); White Blood Cell Count 7.6 X10^3/uL (4.5-11.0)
[2019-10-23 22:35] LABS: Alanine Aminotransferase 37 IU/L (<50); Albumin 4.7 g/dL (3.5-5.0); Albumin Globulin Ratio 1.7 (1.0-2.8); Alkaline Phosphatase 76 U/L (38-126); Aspartate Aminotransferase 39 IU/L (17-59); BUN Creatinine Ratio 14.8 (6-22); Bilirubin Total 0.4 mg/dL (0.2-1.3); Blood Urea Nitrogen 17 mg/dL (9-20); Calcium 9.7 mg/dL (8.4-10.2); Carbon Dioxide 26 mmol/L (22-32); Chloride 102 mmol/L (98-107); Creatine Kinase 101 U/L (55-170); Estimated Glomerular Filt Rate > 60.0 mL/min (>60); Globulin 2.7 g/dL (1.7-4.1); Glucose 95 mg/dL (70-100); HEMOLYSIS < 15 (0-50); Potassium 3.8 mmol/L (3.4-5.1); Sodium 137 mmol/L (137-145); Total Protein 7.4 g/dL (6.3-8.2)
[2019-10-23 22:44] LABS: NT-proBNP (BNP-Adult 18+) 27 pg/mL (<125)
[2019-10-23 22:47] LABS: Troponin I < 0.012 ng/mL (0.01-0.034)
[2019-10-23 22:50] LABS: CKMB % Relative Index 0.4 % (1.5-5.0); Creatine Kinase MB 0.38 ng/mL (<2.37)
[2019-10-23 22:53] LABS: Procalcitonin < 0.05 ng/mL (<0.5)
[2019-10-23 23:51] LABS: COVID19 -Nasal RAPID Negative (Negative)
== END 2019-10-24 00:06 | disposition home or self-care (01) ==
PROVIDERS: Emergency Provider Emergency Medicine
DX: R07.89 Other chest pain (principal); R06.02 Shortness of breath; I73.89 Other specified peripheral vascular diseases
CPT/HCPCS: 36415; 71046; 80053; 82550; 82553; 83880; 84145; 84484; 85025; 85379; 87635; 93005; 99284